=== PATIENT | male | born 1960 | race Hispanic/Latino ===

== ENCOUNTER 2017-08-18 13:28 | Outpatient (CLI) | payer BC | END 2017-08-18 13:29 | disposition home or self-care (01) | LOC: BICULT 13:28 | PROVIDERS: ATTEND Family Medicine | DX: S79.921A Unspecified injury of right thigh, initial encounter (principal); I83.91 Asymptomatic varicose veins of right lower extremity; M79.651 Pain in right thigh; E11.9 Type 2 diabetes mellitus without complications; I10 Essential (primary) hypertension ==